=== PATIENT | female | born 1990 | race Caucasian/White ===

== ENCOUNTER → 2018-08-14 | Outpatient (REF) | payer BC | LOC: M LAB LCGH 17:21 | PROVIDERS: ATTEND Nurse Practitioner Adult Health | DX: Z12.4 Encounter for screening for malignant neoplasm of cervix (principal); R85.612 Low grade squamous intraepithelial lesion on cytologic smear of anus (LGSIL) ==

== ENCOUNTER → 2018-08-26 | Outpatient (REF) | payer BC | LOC: M LAB LCGH 10:46 | DX: R87.612 Low grade squamous intraepithelial lesion on cytologic smear of cervix (LGSIL) (principal) ==

== ENCOUNTER → 2018-09-25 | Outpatient (REF) | payer BC | LOC: M LAB LCGH 11:12 | DX: N92.4 Excessive bleeding in the premenopausal period (principal); N88.8 Other specified noninflammatory disorders of cervix uteri; Z98.51 Tubal ligation status ==